=== PATIENT | male | born 1935 | race Caucasian/White ===

== ENCOUNTER 2016-12-27 15:43 | Emergency (ER) | payer MEDICARE, BC ==
[2016-12-27 15:55] VITALS: BP 131/66
[2016-12-27] MEDS ORDERED: Lidocaine 1% with EPINEPHrine 1:100,000 50 ML MDV INFILT ONE (16:11)
--- NOTE | 2016-12-27 16:44 | EDM.PDOC ---
[id number] 4d FELL HURT FACE Time Seen by Provider: 12/27/16 16:00 Source of Information: Reports: Patient, Family History Limitations: Reports: No Limitations - History of Present Illness INITIAL COMMENTS - FREE TEXT/NARRATIVE: 81-year-old male stumbled falling forward and striking the bridge of his nose on a piece of furniture at home. He has a curved 3 cm laceration over the bridge of the nose. He had some significant epistaxis but that has resolved. No neck pain, loss of consciousness, jaw pain, chest pain, or other symptoms. Onset: Sudden Location: Reports: Face Quality: Reports: Ache Severity: Mild Associated Symptoms: Denies: Fever/Chills, Headaches, Nausea/Vomiting, Shortness of Breath nose Pain Score (Numeric/FACES): 2 - Related Data Allergies Allergy/AdvReac Type Severity Reaction Status Date / Time No Known Allergies Allergy Verified 12/27/16 16:02 Home Meds: Home Meds Allopurinol [Zyloprim] 100 mg PO DAILY 07/10/14 [History] Aspirin [Children's Aspirin] 81 mg PO DAILY 07/10/14 [History] Flecainide Acetate 100 mg PO DAILY 07/10/14 [History] Hydrocodone/Acetaminophen [Hydrocodon-Acetaminophn 10-325] 1 tab PO Q4H PRN [History] Losartan/Hydrochlorothiazide [Losartan-HCTZ 100-25 MG] 1 each PO DAILY 07/10/14 [History] Metoprolol Succinate [Toprol XL] 25 mg PO DAILY 07/10/14 [History] Omeprazole [Prilosec] 20 mg PO DAILY 07/10/14 [History] Simvastatin [Zocor] 40 mg PO DAILY 07/10/14 [History] Warfarin [Coumadin] 2.5 mg PO ASDIRECTED 07/10/14 [History] Warfarin [Coumadin] 5 mg PO ASDIRECTED 07/10/14 [History] amLODIPine [Norvasc] 5 mg PO DAILY 07/10/14 [History] Econazole [Econazole 1% Crm] 1 appful TOP BID 06/29/16 [History] Nitroglycerin [Nitrostat] 1 tab SL ASDIRECTED PRN 06/29/16 [History] Hankins-3 Fatty Acids [Fish Oil] 1,000 mg PO DAILY 06/29/16 [History] Furosemide [Lasix] 20 mg PO DAILY 12/27/16 [History] Gabapentin [Neurontin] 300 mg PO TID 12/27/16 [History] Trospium [Sanctura XR 24 Hr] 60 mg PO DAILY 12/27/16 [History] Past Medical History HEENT History: Reports: Hard of Hearing Cardiovascular History: Reports: Afib, Arrhythmia, High Cholesterol, Hypertension, [place] Gastrointestinal History: Reports: GERD, Hiatal Hernia Genitourinary History: Reports: Renal Disease, Urinary Incontinence Musculoskeletal History: Reports: Osteoarthritis Oncologic (Cancer) History: Reports: Other (See Below) Other Oncologic History: skin Dermatologic History: Reports: Other (See Below) Other Dermatologic History: skin cancer - Past Surgical History HEENT Surgical History: Reports: Tonsillectomy GI Surgical History: Reports: None Male Surgical History: Reports: TURP-Transurethral Resection of Prostate, Vasectomy Neurological Surgical History: Reports: Laminectomy Musculoskeletal Surgical History: Reports: Arthroscopic Knee Social & Family History - Tobacco Use Smoking Status *Q: Never Smoker Years of Tobacco use: 20 Second Hand Smoke Exposure: No - Alcohol Use Days Per Week of Alcohol Use: 7 Number of Drinks Per Day: 2 Total Drinks Per Week: 14 - Recreational Drug Use Recreational Drug Use: No ED ROS GENERAL - Review of Systems Review Of Systems: See Below Constitutional: Denies: Fever, Chills Respiratory: Denies: Shortness of Breath Cardiovascular: Denies: Chest Pain GI/Abdominal: Denies: Abdominal Pain Neurological: Denies: Headache ED EXAM, SKIN/RASH Exam: See Below Exam Limited By: No Limitations General Appearance: Alert, No Apparent Distress Head: Other (Patient has a small abrasion on his left forehead, and a 3 cm curved laceration over the bridge of the nose.) Neck: Non-Tender Respiratory/Chest: No Respiratory Distress, Lungs Clear Neurological: Alert, Oriented Psychiatric: Normal Affect, Normal Mood Course - Vital Signs Last Recorded V/S: Last Vital Signs Temp 98.4 F 12/27/16 15:51 Pulse 61 12/27/16 15:51 Resp 14 12/27/16 15:51 BP 131/66 12/27/16 15:51 Pulse Ox 97 12/27/16 15:51 - Orders/Labs/Meds Meds: Medications Discontinued Medications Generic Name Dose Route Start Last Admin Trade Name Edy PRN Reason Stop Dose Admin Bacitracin 1 dose 12/27/16 16:45 12/27/16 16:54 Bacitracin Oint 1 Gm TOP 12/27/16 16:46 1 dose ONETIME ONE Administration Lidocaine/Epinephrine 30 ml 12/27/16 16:11 12/27/16 16:17 Xylocaine 1% With Epinephrine 1:100,000 INFILT 12/27/16 16:12 30 ml ONETIME ONE Administration - Re-Assessments/Exams Free Text/Narrative Re-Assessment/Exam: 12/27/16 16:42 The laceration was anesthetized with 1% lidocaine with epinephrine, then flushed thoroughly with saline. There did not appear to be a nasal bone fracture, there was no significant bony tenderness or crepitus. 6 5-0 Ethilon sutures were used to close the laceration. Patient had no additional epistaxis. Topical bacitracin and Band-Aid was applied, sutures can be removed in 6 days. Departure - Departure Time of Disposition: 17:00 Disposition: Home, Self-Care 01 Condition: good Clinical Impression: Facial laceration Qualifiers: Encounter type: initial encounter Qualified Code(s): S01.81XA - Laceration without foreign body of other part of head, initial encounter - Discharge Information Instructions: Laceration Care, Adult, [id number] Referrals: Jasson Marrufo PA [Primary Care Provider] - Forms: ED Department Discharge Care Plan Goals: Keep wound covered and clean while healing. Sutures can be removed next Saturday morning. Return sooner if concerns of infection or not healing satisfactorily.
[2016-12-27] MEDS ORDERED: Bacitracin Oint 1 GM U/D Packet TOP ONE (16:45)
== END 2016-12-27 17:00 | disposition home or self-care (01) ==
LOC: JP.ED 15:43
DX: S01.81XA Laceration without foreign body of other part of head, initial encounter (principal); I48.91 Unspecified atrial fibrillation; E78.00 Pure hypercholesterolemia, unspecified; I10 Essential (primary) hypertension; I25.2 Old myocardial infarction; K21.9 Gastro-esophageal reflux disease without esophagitis; M19.90 Unspecified osteoarthritis, unspecified site; Z98.890 Other specified postprocedural states; Z90.79 Acquired absence of other genital organ(s); Z85.828 Personal history of other malignant neoplasm of skin; Z79.01 Long term (current) use of anticoagulants; Z79.899 Other long term (current) drug therapy; Z79.82 Long term (current) use of aspirin; W22.8XXA Striking against or struck by other objects, initial encounter
CPT/HCPCS: 12013; 99282-25; 99283-25

== ENCOUNTER 2017-03-26 06:06 | Day surgery (SDC) | payer MEDICARE, BC ==
[2017-03-26] MEDS ORDERED: fentaNYL 100 MCG/2 ML SDV ONE (06:57)
[2017-03-26] MEDS ORDERED: Propofol 200 MG/20 ML SDV ONE (06:57)
[2017-03-26] MEDS ORDERED: Dextrose 5%-Lactated Ringers 1,000 ML IV SCH (07:00)
[2017-03-26] MEDS ORDERED: Pantoprazole 40 MG Vial IVPUSH ONE (08:10)
[2017-03-26 09:12] VITALS: BP 136/71
--- NOTE | 2017-03-31 16:49 | OR ---
DATE OF PROCEDURE: 03/26/2017 PREOPERATIVE DIAGNOSIS: Epigastric pain and heartburn. POSTOPERATIVE DIAGNOSES: 1. Ulcerated gastroesophageal reflux disease with moderate sized hiatal hernia. 2. Mild antral gastritis. OPERATIVE PROCEDURE: Esophagogastroduodenoscopy with: 1. Biopsy of esophagogastric junction for histologic evaluation. 2. Biopsies of antrum for CLOtest. ANESTHESIA: IV sedation. INDICATION FOR PROCEDURE: An 81-year-old presenting with some dysphagia as well as history of heartburn and some epigastric discomfort. He has been prescribed omeprazole, but takes it only sporadically and has not taken any for some time. The plan is to proceed with upper GI endoscopy with biopsies or dilation as indicated. Potential risks including bleeding and perforation were discussed, and the patient wishes to proceed. DETAILS OF PROCEDURE: The patient was taken to the operating room and placed in a left lateral decubitus position. IV sedation was administered, after which the upper GI endoscope was passed orally through the length of the esophagus, into the stomach with retroflexion view of the fundus, and thereafter through the pyloric channel and then into the proximal duodenum. Findings included normal hypopharynx, larynx, upper esophageal sphincter. There was perhaps some mild redness in the pyriform sinuses. The upper esophagus was unremarkable. As one approached the EG junction, there was a 3 cm hiatal hernia, large ulcer measuring around 3 cm, extending up from the esophagogastric junction mucosa line. This was presently covered with fibrinous exudate. There was no stricture or plaquing or other suggestive of neoplasia. Within the stomach, the proximal stomach was unremarkable apart from the hiatal hernia. There was some very mild redness in the antrum without erosions or ulcers. Pyloric channel and duodenal junction, third and fourth portions were unremarkable. At this point, biopsies obtained from the antrum to assess the patient's H. pylori status. Multiple biopsies have been obtained from the esophagogastric junction and sent for histologic evaluation. Minimal bleeding from the biopsy sites were seen and the procedure then concluded. At this point, we will give the patient Protonix 40 mg IV in the recovery room, and begin Protonix 40 mg daily. It was discussed with the family that it is important that he be compliant with his medications so as to avoid complications related to the reflux disease. He will be following up with JESSICA Osuna in [facility] in 2 weeks. Ariel Chester MD /[id number]
== END 2017-03-26 09:30 | disposition home or self-care (01) ==
LOC: JP.SDS 06:06
PROVIDERS: ATTEND Surgery
PROC: 0DB48ZX Excision of Esophagogastric Junction, Via Natural or Artificial Opening Endoscopic, Diagnostic (ICD-10-PCS; principal; 2017-03-26)
PROC: 0DB78ZX Excision of Stomach, Pylorus, Via Natural or Artificial Opening Endoscopic, Diagnostic (ICD-10-PCS; 2017-03-26)
DX: K29.70 Gastritis, unspecified, without bleeding (principal); K21.9 Gastro-esophageal reflux disease without esophagitis; K44.9 Diaphragmatic hernia without obstruction or gangrene; I10 Essential (primary) hypertension; I25.10 Atherosclerotic heart disease of native coronary artery without angina pectoris; Z79.899 Other long term (current) drug therapy
CPT/HCPCS: 43239; 87081; 88305; C9113; J2704; J3010; J7042

== ENCOUNTER 2018-11-27 06:10 | Day surgery (SDC) | payer BC, MEDICARE ==
[2018-11-27] MEDS ORDERED: Dextrose 5%-Lactated Ringers 1,000 ML IV SCH (06:30)
[2018-11-27] MEDS ORDERED: Propofol 200 MG/20 ML SDV ONE (07:12)
[2018-11-27 09:02] VITALS: BP 154/73
--- NOTE | 2018-12-01 10:24 | OR ---
DATE OF PROCEDURE: 11/27/2018 PREOPERATIVE DIAGNOSIS: Probable gastroesophageal reflux disease. POSTOPERATIVE DIAGNOSES: 1. Active gastroesophageal reflux disease with large hiatal hernia and extensive upward migration of the columnar mucosa (5 cm) above upper gastric folds, suggestive of Vallecillo esophagus. 2. Mild antral gastritis. OPERATIVE PROCEDURE: Esophagogastroduodenoscopy with: 1. Biopsy of esophagogastric junction and there is columnar mucosal extension in distal esophagus sent for histologic evaluation. 2. Biopsies of antrum for CLOtest. ANESTHESIA: IV sedation. INDICATION FOR PROCEDURE: This is an 83-year-old, presenting with some extensive dysphagia referable to the distal esophagus. He also unfortunately is having to clear his throat quite a bit with some mucoid type secretions. The patient is presently on omeprazole 20 mg daily. Plan is to proceed with an upper GI endoscopy with biopsies and/or dilation as indicated. Potential risks including bleeding and perforation were discussed, and the patient wishes to proceed. DETAILS OF PROCEDURE: The patient was taken to the operating room and placed in a left lateral decubitus position. IV sedation was administered, after which the upper GI endoscope was passed orally through the length of the esophagus into the stomach with retroflexion view of the fundus, thereafter through the pyloric channel into the proximal duodenum. Findings included normal hypopharynx, larynx, upper esophageal sphincter, and esophageal body. As one approached the distal esophagus, the patient had a quite striking upward extension of the columnar mucosa. This was then accomplished. This was more or less a confluence from eventual upward extension measuring around 5 cm above the upper gastric folds. This was associated with some friability and edema of that area as well as esophagogastric junction likely related to the patient's dysphagia symptoms. There is no stricturing per se and no gross evidence of neoplasia, no plaquing, or other problems such as that were identified. Within the stomach, there was some mild patchy redness in the antrum. Pyloric channel and visualized portions of the duodenum were unremarkable. At this point, biopsies were sent for CLOtest from the antrum and then multiple biopsies were obtained from the esophagogastric junction as well as the area above that involved columnar mucosa migration. Two circumferential sets of biopsies, one close of the EG junction and one in the higher aspect of the area of columnar mucosa were made and sent for histologic evaluation. Minimal bleeding from the biopsy sites was seen and the procedure was then concluded. The plan at this point, we will have the patient move his omeprazole dose up to 20 mg p.o. b.i.d. and we will have him follow up with Michael Mckinney NP, in [place] in 1 to 2 weeks. With the patient's throat-clearing, he may have some irritation related to nighttime aspiration preventing his reflux, but this may also be something that might be treatable with subsequently like Nasacort as well. We will have that evaluated by Michael Mckinney as well at that appointment. 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 We will plan to continue every 2-year followup endoscopy. If significant dysphagia is seen, the patient will be a candidate for radiofrequency ablation of the Vallecillo's esophagus. We will contact the patient should path report show that findings indicating a need for RFA. Ariel Chester MD /[id number]
== END 2018-11-27 09:20 | disposition home or self-care (01) ==
LOC: JP.SDS 06:10
PROVIDERS: ATTEND Surgery
DX: K21.9 Gastro-esophageal reflux disease without esophagitis (principal); K22.70 Barrett's esophagus without dysplasia; K44.9 Diaphragmatic hernia without obstruction or gangrene; K29.70 Gastritis, unspecified, without bleeding; Z79.899 Other long term (current) drug therapy
CPT/HCPCS: 36415; 43239; 85610; 87081; 88305; J2704; J7042

== ENCOUNTER 2019-01-30 18:45 | Emergency (ER) | payer MEDICARE ==
[2019-01-30] MEDS ORDERED: Bacitracin Oint 1 GM U/D Packet TOP ONE (20:20)
[2019-01-30 20:23] VITALS: BP 180/83; PULSE 62
[2019-01-30] MEDS ORDERED: Diphtheria,Pertussis(Acell),Tetanus Vaccine 0.5 ML SDV IM ONE (20:28)
--- NOTE | 2019-01-30 20:55 | EDM.PDOC ---
ED HPI GENERAL MEDICAL PROBLEM - General Chief Complaint: Laceration Stated Complaint: CUT LEFT HAND Time Seen by Provider: 01/30/19 20:35 Source of Information: Reports: Patient, Family History Limitations: Reports: No Limitations - History of Present Illness INITIAL COMMENTS - FREE TEXT/NARRATIVE: 83 yo male present to er due to left hand laceration. Patient was fixing his lawn float remover at home and his left hand slipped resulting in a laceration which bleed profusely. Patient is on Coumadin and his last level was 2.8 or 2.9. Patient denies any other injuries. Patient presents with for evaluation. Treatments DIGITAL ASSET COORDINATOR: Reports: Dressing(s) denies pain Pain Score (Numeric/FACES): 0 - Related Data Allergies Allergy/AdvReac Type Severity Reaction Status Date / Time No Known Allergies Allergy Verified 01/30/19 20:28 Home Meds: Home Meds Allopurinol [Zyloprim] 100 mg PO DAILY 07/10/14 [History] Aspirin [Children's Aspirin] 81 mg PO DAILY 07/10/14 [History] Flecainide Acetate 100 mg PO DAILY 07/10/14 [History] Metoprolol Succinate [Toprol XL] 50 mg PO DAILY 07/10/14 [History] Omeprazole [Prilosec] 40 mg PO BID 07/10/14 [History] Simvastatin [Zocor] 40 mg PO DAILY 07/10/14 [History] Warfarin [Coumadin] 2.5 mg PO SUTUWETH 07/10/14 [History] Warfarin [Coumadin] 5 mg PO MOFRSA 07/10/14 [History] amLODIPine [Norvasc] 5 mg PO DAILY 07/10/14 [History] Nitroglycerin [Nitrostat] 1 tab SL ASDIRECTED PRN 06/29/16 [History] Gabapentin [Neurontin] 300 mg PO QID 12/27/16 [History] Trospium [Sanctura XR 24 Hr] 60 mg PO DAILY 12/27/16 [History] Hydrocodone/Acetaminophen [Hydrocodon-Acetaminophn 10-325] 1 each PO QID PRN 08/07 [History] Econazole [Econazole 1% Crm] 1 applic TOP BID 11/25/18 [History] Past Medical History HEENT History: Reports: Cataract, Hard of Hearing, Impaired Vision Cardiovascular History: Reports: Afib, Arrhythmia, High Cholesterol, Hypertension, [place] Gastrointestinal History: Reports: GERD, Hiatal Hernia Genitourinary History: Reports: Renal Disease, Urinary Incontinence Musculoskeletal History: Reports: Osteoarthritis Neurological History: Reports: Vertigo Endocrine/Metabolic History: Reports: Obesity/BMI 30+ Hematologic History: Reports: Anticoagulation Therapy Oncologic (Cancer) History: Reports: Other (See Below) Other Oncologic History: skin Dermatologic History: Reports: Other (See Below) Other Dermatologic History: skin cancer - Infectious Disease History Infectious Disease History: Reports: Chicken Pox, Measles, Mumps - Past Surgical History HEENT Surgical History: Reports: Cataract Surgery, Tonsillectomy, Other (See Below) Other HEENT Surgeries/Procedures: deviated septum repair Cardiovascular Surgical History: Reports: Other (See Below) Other Cardiovascular Surgeries/Procedures: angiogram GI Surgical History: Reports: Colonoscopy, EGD Male Surgical History: Reports: TURP-Transurethral Resection of Prostate, Vasectomy Endocrine Surgical History: Reports: None Neurological Surgical History: Reports: Laminectomy Musculoskeletal Surgical History: Reports: Arthroscopic Knee Oncologic Surgical History: Reports: None Dermatological Surgical History: Reports: None Social & Family History - Tobacco Use Smoking Status *Q: Never Smoker - Caffeine Use Caffeine Use: Reports: Coffee - Recreational Drug Use Recreational Drug Use: No ED ROS GENERAL - Review of Systems Review Of Systems: ROS reveals no pertinent complaints other than HPI. ED EXAM, SKIN/RASH Exam: See Below Exam Limited By: No Limitations General Appearance: Alert, WD/WN, No Apparent Distress Throat/Mouth: Normal Inspection, Normal Lips, Normal Teeth, Normal Gums, No Airway Compromise Head: Normocephalic Neck: Normal Inspection Respiratory/Chest: No Respiratory Distress Cardiovascular: Normal Peripheral Pulses GI/Abdominal: Normal Bowel Sounds Extremities: Normal Inspection, Normal Range of Motion, Non-Tender, No Pedal Edema, Normal Capillary Refill Location, Skin: Upper Extremity, Left (laceration palm of left hand thenar eminence) ED SKIN PROCEDURES - Laceration/Wound Repair Left Hand Lac/Wound length In cm: 2.6 Appearance: Subcutaneous Distal NVT: Neuro & Vascular Intact, No Tendon Injury Anesthetic Type: Local Local Anesthesia - Lidocaine (Xylocaine): 1% Plain Local Anesthetic Volume: 2cc Skin Prep: Chlorhexidine (Hibiciens), Saline Saline Irrigation (cc's): 500 Exploration/Debridement/Repair: Wound Explored, Explored to Base, No Foreign Material Found Closed with: Sutures Suture Size: 5-0 # of Sutures: 5 Suture Type: Nylon Sterile Dressing Applied: Nurse Tetanus Status Addressed: Yes (given) Complications: No Course - Vital Signs Last Recorded V/S: Last Vital Signs Temp 36.0 C 01/30/19 20:33 Pulse 62 01/30/19 20:33 Resp 16 01/30/19 20:33 BP 180/83 H 01/30/19 20:33 Pulse Ox 94 L 01/30/19 20:33 - Orders/Labs/Meds Orders: Active Orders 24 hr Category Date Time Status Vaccines to be Administered [RC] PER UNIT ROUTINE Care 01/30/19 20:28 Active Labs: Laboratory Tests 01/30/19 Range/Units 20: PT 29.4 H (9.5-12.0) sec INR 2.89 H (0.80-1.20) Meds: Medications Discontinued Medications Generic Name Dose Route Start Last Admin Trade Name Edy PRN Reason Stop Dose Admin Bacitracin 1 dose 01/30/19 20:20 01/30/19 20:38 Bacitracin Oint 1 Gm TOP 01/30/19 20:21 1 dose ONETIME ONE Administration Diphtheria/Tetanus/Acell Pertussis 0.5 ml 01/30/19 20:28 01/30/19 20:40 Adacel IM 01/30/19 20:29 0.5 ml .ONCE ONE Administration Lidocaine HCl 5 ml 01/30/19 20:19 01/30/19 20:38 Xylocaine-Mpf 1% INJECT 01/30/19 20:20 5 ml ONETIME ONE Administration Departure - Departure Time of Disposition: 20:56 Disposition: Home, Self-Care 01 Clinical Impression: Laceration of hand, Chronic anticoagulation, Up to date with tetanus vaccination - Discharge Information Instructions: Warfarin Coagulopathy, Sutured Wound Care, Stitches, [place], or Adhesive Wound Closure Referrals: Michael Mckinney NP [Primary Care Provider] - 1 Week (Call Saturday for wound check and suture removal in 7-10 days. ) Forms: ED Department Discharge - Problem List & Annotations (1) Laceration of hand SNOMED Code(s): 707463946 Code(s): S61.419A - LACERATION WITHOUT FOREIGN BODY OF UNSP HAND, INIT ENCNTR Status: Acute Current Visit: Yes (2) Chronic anticoagulation SNOMED Code(s): 626333169 Code(s): Z79.01 - SOAPSTONER (CURRENT) USE OF ANTICOAGULANTS Status: Acute Current Visit: Yes (3) Up to date with tetanus vaccination SNOMED Code(s): 968770728 Code(s): HPD8180 - Status: Acute Current Visit: Yes - Assessment/Plan Plan: 1. Keep wound clean dry and covered x 48 hours. 2. After 48 hours, cleanse with soap and water every am and pm 3. Topical antibotic ointment and dressing after cleansing. 4. Tylenol if needed for pain. 5. Tetanus updated during visit. 6. Call PCP for wound check in 3-5 days if infection concerns and suture removal in 7-10 days.
== END 2019-01-30 21:53 | disposition home or self-care (01) ==
LOC: JP.ED 18:45
DX: S61.412A Laceration without foreign body of left hand, initial encounter (principal); I48.91 Unspecified atrial fibrillation; I10 Essential (primary) hypertension; I25.2 Old myocardial infarction; K21.9 Gastro-esophageal reflux disease without esophagitis; E78.00 Pure hypercholesterolemia, unspecified; E66.9 Obesity, unspecified; Z68.30 Body mass index [BMI] 30.0-30.9, adult; Z79.01 Long term (current) use of anticoagulants; Z23 Encounter for immunization; Z79.82 Long term (current) use of aspirin; Z79.899 Other long term (current) drug therapy; W26.8XXA Contact with other sharp object(s), not elsewhere classified, initial encounter; Y92.009 Unspecified place in unspecified non-institutional (private) residence as the place of occurrence of the external cause
CPT/HCPCS: 12002; 36415; 85610; 90471; 90715; 99282; J2001